=== PATIENT | male | born 1935 | race Caucasian/White ===

== ENCOUNTER 2020-01-05 21:39 | Emergency (ER) | payer MEDICARE, OTHER ==
[~2020-01-05] VITALS: Ht 172.7 cm; Wt 90.7 kg
[2020-01-05] MEDS ORDERED: PHENYLEPHRINE 1% (EXTRA STR) NASAL SPRAY NS ONE (21:53)
--- NOTE | 2020-01-05 21:53 | NUR ---
PT PRESENTED TO ER AMBULATORY WITH STEADY GAIT. C/O NOSE BLEED AA/OX4. ABLE TO SPEAK IN COMPLETE SENTENCES. ABLE TO MAKE NEEDS KNOWN RESPIRATION EVEN AND UNLABORED DENIES N/V/D DENIES PAIN AT THIS TIME SR UP FOR SAFETY. HOB HIGH GODDARD'S POSITION. BED LOCKED, LOWEST POSITION. INSTRUCTED PT TO CALL NURSE FOR ASSISTANCE MONITORED ACCORDINGLY WILL CONTINUE TO MONITOR
--- NOTE | 2020-01-05 21:55 | NUR ---
Dr. Whaley at bedside for MSE
[2020-01-05 22:16] LABS: BASOPHILS % (AUTO) 0.7 % (0.0-2.0); EOSINOPHILS # (AUTO) 0.2 K/uL (0.0-0.7); EOSINOPHILS % (AUTO) 3.5 % (0.0-7.0); HEMATOCRIT 40.4 % (36.7-47.1); HEMOGLOBIN 14.2 g/dL (12.5-16.3); LYMPHOCYTES # (AUTO) 1.7 K/uL (20.0-40.0); LYMPHOCYTES % (AUTO) 30.4 % (20.5-51.5); MEAN CORPUSCULAR HEMOGLOBIN 35.4 uug (23.8-33.4); MEAN CORPUSCULAR HGB CONC 35 g/dL (32.5-36.3); MEAN CORPUSCULAR VOLUME 100.5 fL (73.0-96.2); MONOCYTES # (AUTO) 0.5 K/uL (2.0-10.0); MONOCYTES % (AUTO) 8.6 % (0.0-11.0); NEUTROPHILS # (AUTO) 3.2 K/uL (1.8-8.9); NEUTROPHILS % (AUTO) 56.8 % (38.5-71.5); PLATELET COUNT (AUTO) 264 K/uL (152-348); RED BLOOD CELL COUNT(AUTO) 4.02 MIL/uL (4.06-5.63); WHITE BLOOD COUNT (AUTO) 5.6 K/uL (3.6-10.2)
[2020-01-05 22:22] LABS: CARBON DIOXIDE 31 mmol/L (21-32); CHLORIDE 103 mmol/L (98-107); CREATININE 1.4 mg/dL (0.6-1.3); GLUCOSE 108 mg/dL (74-106); UREA NITROGEN, BLOOD 19 mg/dL (7-18)
[2020-01-05] MEDS ORDERED: POTASSIUM CHLORIDE 20 MEQ TAB.PRT.SR PO ONE (22:30)
[2020-01-05] MEDS ORDERED: CEphaleXIN 500 MG CAPSULE ONE (22:38)
[2020-01-05] MEDS ORDERED: POTASSIUM CHLORIDE 20 MEQ TAB.PRT.SR ONE (22:39)
[2020-01-05] MEDS ORDERED: CEphaleXIN 500 MG CAPSULE PO ONE (22:45)
--- NOTE | 2020-01-05 23:30 | NUR ---
Patient discharged to home in stable condition. Written and verbal after care instructions given. Patient verbalizes understanding of instructions. Stressed follow up or return to ER for worsening s/s. AMBULATE WITH STEADY GAIT AA/OX4. ABLE TO SPEAK IN COMPLETE SENTENCES ALL BELONGINGS WITH PT NO S/S OF DISTRESS BREATHING EVEN AND UNLABORED
[2020-01-05 23:32] VITALS: BP 156/95
== END 2020-01-05 23:33 | disposition home or self-care (01) ==
LOC: ER 21:41
DX: R04.0 Epistaxis (principal); E87.6 Hypokalemia; Z79.82 Long term (current) use of aspirin; I48.92 Unspecified atrial flutter; I10 Essential (primary) hypertension
CPT/HCPCS: 30901; 36415; 85025; 85730; A4217; A4663

== ENCOUNTER 2021-05-17 11:05 | Emergency (ER) | payer BC, MEDICARE, OTHER ==
[~2021-05-17] VITALS: Ht 172.7 cm; Wt 90.7 kg
[2021-05-17] MEDS ORDERED: FLEET ENEMA 133 ML BOTTLE RC ONE (11:31)
[2021-05-17] MEDS: MINERAL OIL FLEET ENEMA 133 ML BOTTLE RC ONE (11:33)
[2021-05-17 11:36] LABS: HEMATOCRIT 41.9 % (36.7-47.1); MEAN CORPUSCULAR HEMOGLOBIN 35.3 uug (23.8-33.4); MEAN CORPUSCULAR VOLUME 102.7 fL (73.0-96.2); PLATELET COUNT (AUTO) 232 K/uL (152-348)
--- NOTE | 2021-05-17 11:37 | NUR ---
MD wants the rectal enema 1st before doing the EKG and CT scan.
[2021-05-17 11:48] LABS: ALANINE AMINOTRANSFERASE 26 U/L (16-63); ALKALINE PHOSPHATASE 64 U/L (50-136); ASPARTATE AMINOTRANSFERASE 17 U/L (15-37); BILIRUBIN,DIRECT 0.1 mg/dL (0.0-0.2); BILIRUBIN,TOTAL 0.5 mg/dL (0.2-1.0); CARBON DIOXIDE 24 mmol/L (21-32); CHLORIDE 103 mmol/L (98-107); CREATININE 1.4 mg/dL (0.6-1.3); GLUCOSE 179 mg/dL (74-106); LIPASE 137 U/L (73-393); TOTAL PROTEIN, SERUM 7.1 g/dL (6.4-8.2); UREA NITROGEN, BLOOD 25 mg/dL (7-18)
[2021-05-17] MEDS ORDERED: METO25TA6 PO (15:30)
[2021-05-17] MEDS ORDERED: AMLO-62 PO (15:33)
[2021-05-17] MEDS ORDERED: POTA-194 PO (15:33)
--- NOTE | 2021-05-17 15:38 | NUR ---
SONYA GUERIN CALLED BACK SPOKE WITH DR RUBY ACCEPTED PATIENT FOR ADMISSION.
--- NOTE | 2021-05-17 16:00 | NUR ---
Patient assisted to bathroom X1 episode BM large and voided [address] RUBY.
[2021-05-17 16:09] LABS: *BILIRUBIN,URIN NEGATIVE (NEGATIVE); *BLOOD, URINE NEGATIVE (NEGATIVE); *CLARITY,URINE CLEAR (CLEAR); *COLOR,URINE YELLOW (YELLOW); *KETONES,URINE NEGATIVE (NEGATIVE); *UROBILINOGEN,URINE 0.2 E.U./dl (NORMAL); LEUKOCYTE ESTERASE ,URINE NEGATIVE (NEGATIVE); NITRITE, URINE NEGATIVE (NEGATIVE); UGLUCOSE NEGATIVE (NEGATIVE)
[2021-05-17] MEDS ORDERED: DOCU250C14 PO (16:40)
[2021-05-17] MEDS: POTASSIUM BICARBONATE/CIT AC 25 MEQ TABLET.EFF PO ONE (16:46)
[2021-05-17] MEDS ORDERED: POTASSIUM BICARBONATE/CIT AC 25 MEQ TABLET.EFF ONE (16:53)
[2021-05-17 16:56] VITALS: BP 116/61
--- NOTE | 2021-05-17 16:56 | NUR ---
Patient discharged to home in stable condition. Written and verbal after care instructions given. Patient and verbalizes understanding of instructions. Stressed follow up or return to ER for worsening s/s.
== END 2021-05-17 17:00 | disposition home or self-care (01) ==
LOC: ER 11:05
DX: K56.41 Fecal impaction (principal); E87.6 Hypokalemia; N20.0 Calculus of kidney; Z20.822 Contact with and (suspected) exposure to COVID-19; N28.9 Disorder of kidney and ureter, unspecified; I10 Essential (primary) hypertension; Z91.010 Allergy to peanuts
CPT/HCPCS: 36415; 70030-TC; 71045; 83690; 85025; 85730; 93005; A4663

== ENCOUNTER 2023-04-15 14:02 | Emergency (ER) | payer BC ==
[~2023-04-15] VITALS: Ht 177.8 cm; Wt 84.4 kg
[~2023-04-15 14:02] MED LIST: AMLO-62 PO; DOCU250C14 PO; METO25TA6 PO; POTA-194 PO
[2023-04-15] MEDS ORDERED: OMEG-130 PO (14:28)
[2023-04-15] MEDS ORDERED: [UNRECOGNIZED DRUG - CODE] PO (14:28)
[2023-04-15] MEDS ORDERED: APIX2.5T PO (14:28)
[2023-04-15] MEDS ORDERED: CEPH250C PO (14:30)
[2023-04-15] MEDS ORDERED: SULF1TAB48 PO (14:30)
[2023-04-15] MEDS ORDERED: SILVADEN (14:30)
[2023-04-15 16:00] VITALS: BP 106/65; O2SAT 98
== END 2023-04-15 16:00 | disposition home or self-care (01) ==
LOC: ER 14:02
DX: L03.115 Cellulitis of right lower limb (principal); I10 Essential (primary) hypertension; Z91.010 Allergy to peanuts; Z79.899 Other long term (current) drug therapy
CPT/HCPCS: A4663